=== PATIENT | male | born 1990 | race Caucasian/White ===

== ENCOUNTER 2024-05-28 05:29 | Day surgery (SDC) | payer BC, SELFPAY ==
[2024-05-16 08:52] LABS: Absolute Neutrophil Count 2.6 X10^3/uL (2.0-7.7); Basophil# 0.07 X10^3/uL; Basophil% 1.2 % (0-1); Eosinophil# 0.16 X10^3/uL; Eosinophils% 2.8 % (0-5); Hematocrit 42.2 % (40-54); Hemoglobin 14.7 g/dL (13.0-16.5); Lymphocyte % 39.6 % (19-41); Mean Corp Hgb Conc 34.8 g/dL (32-36); Mean Corpuscular Hgb 30.4 pg (27.0-32.0); Mean Corpuscular Volume 87.4 fL (80-94); Mean Platelet Vol. 9.9 fl (6.2-12.0); Monocyte# 0.66 X10^3/uL; Monocyte% 11.4 % (0-10); NRBC Flagged by Analyzer 0 % (0-5); Neutrophil # 2.56 X10^3/uL (2.7-7.7); Platelet Count 262 K/mm3 (150-450); RBC Distribution Width CV 12.6 % (11.6-14.6); RBC Distribution Width SD 39.7 fl (35.1-43.9); Red Blood Count 4.83 M/mm3 (4.6-6.2); White Blood Count 5.8 K/mm3 (4.4-11.0)
[2024-05-16 09:12] LABS: Magnesium 2.1 mg/dL (1.6-2.6)
[2024-05-16 09:13] LABS: Anion Gap 7 (5-15); BUN 16 mg/dL (7-18); BUN/Creat Ratio 19.4 RATIO (10-20); Calcium,Total 9.1 mg/dL (8.5-10.1); Chloride 106 mmol/L (98-107); Creatinine, Serum 0.83 mg/dL (0.70-1.30); EST Glomerular Filtration Rate 114 mL/min (>60); Est Glom Filt Rate - Afr Amer 138 mL/min (>60); Glucose 121 mg/dL (74-106); Sodium Level 139 mmol/L (136-145)
[2024-05-16 11:50] LABS: HIV - WCH Non-Reactive (Nonreactive); Hepatitis B Surface Antibody Reactive; Hepatitis C Antibody Non-Reactive (Nonreactive)
[2024-05-17 04:07] LABS: Hepatitis A AB, Total Negative (Negative)
[2024-05-28] VITALS (13 sets, daily range): BP systolic 127–136; BP diastolic 73–109; PULSE 83–91; RESP 16–18; TEMP 36.1–36.8; O2SAT 96–100; BMI 38.5
[2024-05-28] MEDS: Magnesium 1 GM over 15 mins IV (06:15)
[2024-05-28] MEDS: 0.9% Normal Saline (1000mL) 1,000 ML 15 ML IV ×2 (06:30→10:32)
--- NOTE | 2024-05-28 06:30 | RAD_ITS ---
PROCEDURE: Disc arthroplasty at the C4-C5 level. DATE OF EXAMINATION: May 28, 2024. INDICATION: Male, 34 years old. Disc arthroplasty at the C4-C5 level. FLUOROSCOPY TIME (if supplied): (12.2 seconds) minutes/seconds. 0.94 mGy. 3 images were submitted. RAD/Cerv Spine 2 or 3 Views IMPRESSION: The localization instrument is seen along the anterior aspect of the C5-C6 disc space level. Electronically Signed: Yung Werner MD at 13:32 EST ,
[2024-05-28] MEDS: Acetaminophen 500 MG Tablet 1000 MG PO (06:31)
--- NOTE | 2024-05-28 06:54 | PRE.ANES_ITS ---
ASA Classification* ASA Classification ASA Classification: 3 Assessment & Plan Anesthesia* Anesthesia Assessment Anesthesia Assessment: Discussed sedation and/or anesthesia options, risks, benefits, and alternatives with patient/parents/legal guardian/POA. Questions invited. The patient/parents/legal guardian/POA seems to understand and agrees to proceed with anesthesia plan. Reviewed the physical assessment, medical history, allergy history and patient home medications list prior to surgery/procedure/anesthetic and documented any changes. Performed airway and anesthesia risk assessments. Anesthesia Type Anesthesia Type: General Anesthesia Focused Assessment* Temperature: 98.3 F Pulse Rate: 83 Blood Pressure: 128/79 Respiratory Rate: 18 Pulse Ox: 96 Airway Assessment Mouth opens: >3 cm Mallampati Score: II Focused Labs Anesthesia Preop lab: CBC WBC 5.8 K/mm3 (4.4-11.0) 05/16/24 07:46 RBC 4.83 M/mm3 (4.6-6.2) 05/16/24 07:46 Hgb 14.7 g/dL (13.0-16.5) 05/16/24 07:46 Hct 42.2 % (40-54) 05/16/24 07:46 Plt Count 262 K/mm3 (150-450) 05/16/24 07:46 CHEMISTRY Potassium 4.0 mmol/L (3.5-5.1) 05/16/24 07:46 Sodium 139 mmol/L (136-145) 05/16/24 07:46 Magnesium 2.1 mg/dL (1.6-2.6) 05/16/24 07:46 BUN 16 mg/dL (7-18) 05/16/24 07:46 Creatinine 0.83 mg/dL (0.70-1.30) 05/16/24 07:46 Glucose 121 mg/dL (74-106) H 05/16/24 07:46 COAG Pre-Assessment Diagnosis/Proposed Procedure Planned Operative Procedure(s): Cervical Disc Arthroplasty C4-5 Anesthesia History 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 When Was Last Pacemaker Check QUESTION #4 FULL TEXT: You/Your Family Experience fever (hyperthermia) with Anesthesia Last Oral Intake Last Oral intake: Last Oral Intake NPO since 20:00 05/28/24 06:24 Meds taken in AM with sips of No 05/28/24 06:24 water? 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 operator Female No 05/14/24 10:52 HX of Motion Sickness No 05/14/24 10:52 HX of N/V After Surgery No 05/14/24 10:52 Non-Smoker Yes 05/14/24 10:52 Duration of Surgery greater Yes 05/14/24 10:52 than 60 minutes Number of Risk Factors 2 05/14/24 10:52 PONV Score Moderate Risk 05/14/24 10:52 Height & Weight Height & Weight: Anesthesia: Height & Weight Height 6 ft 2 in 05/28/24 06:24 Weight: 136 kg 05/28/24 06:24 Body Mass Index (BMI) 38.5 05/28/24 06:24 Respiratory Assessment Respiratory Assessment - gear lapping machine operator: Respiratory Tract Infection Hx - gear lapping machine operator Hx Respiratory Tract Infection No 05/14/24 10:52 STOP Sleep Apnea STOP Sleep Apnea - gear lapping machine operator: STOP Sleep Apnea - gear lapping machine operator Hx Hypertension No 05/14/24 10:52 Hx Sleep Apnea No 05/14/24 10:52 CPAP BIPAP Do you snore loudly (louder No 05/14/24 10:52 than talking or can be heard Do you often feel tired/ No 05/14/24 10:52 fatigued/ sleepy during daytime? Has anyone observed you stop No 05/14/24 10:52 breathing during sleep? STOP Results Negative 05/14/24 10:52 QUESTION #5 FULL TEXT : Do you snore loudly (louder than talking or can be heard through closed doors)? 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 Specify any problems Hx of Preganancy in last 3 N/A 05/14/24 10:52 Months Nurse Filling Out Transfusion NBUCHER 05/14/24 10:52 & Questions: Date: 05/14/24 05/14/24 10:52 Time: 10:53 05/14/24 10:52 Patient unable to answer at this time (ie. confused, unrespo /Reproduction History /Reproductive History - gear lapping machine operator: /Reproductive Hx- gear lapping machine operator Hx Now No 05/14/24 10:52 Gestational Age (in weeks): EDC: Hx Hx Para Hx Section SAB No 05/14/24 10:52 Active Medications Active Medications: Current Medications Generic Name Dose Route Start Last Admin Trade Name Freq PRN Reason Stop Dose Admin Acetaminophen 1,000 mg 05/28/24 07:30 05/28/24 06:31 Acetaminophen 500 Mg Tablet PO 05/28/24 07:31 1,000 mg X1 ONE Administration Dexamethasone Sodium Phosphate 8 mg 05/28/24 07:30 Dexamethasone 10 Mg/Ml Vial IV 05/28/24 07:31 X1 ONE Dexamethasone Sodium Phosphate 4 mg 05/28/24 07:30 Dexamethasone 4 Mg/Ml Vial IV 05/28/24 07:31 X1 ONE Tranexamic Acid 1,000 mg/ 110 mls @ 440 mls/hr 05/28/24 07:30 Sodium Chloride IV 05/28/24 07:44 X1 ONE Tranexamic Acid 1,000 mg/ 110 mls @ 440 mls/hr 05/28/24 08:30 Sodium Chloride IV 05/28/24 08:44 X1 ONE Cefazolin Sodium 3 gm/ N/A 30 mls @ 600 mls/hr 05/28/24 07:30 IV 05/28/24 07:32 PREOP ONE Magnesium Sulfate 1 gm/ 102 mls @ 408 mls/hr 05/28/24 07:30 05/28/24 06:15 Dextrose IV 05/28/24 07:44 408 mls/hr X1 ONE Administration Sodium Chloride 1,000 mls @ 15 mls/hr 05/28/24 05:40 05/28/24 06:30 IV 06/02/24 18:59 15 mls/hr .Q48H SHERIE Administration Protocol Insulin Human Lispro 1 - 6 unit 05/28/24 07:30 Insulin Lispro 100 Unit/Ml Insuln.Pen SC Q4H PRN PRN BG>/= 180, SEE PROTOCOL Protocol PFSH Medical History ADHD Testicular abnormality Former smoker Home Medications ?Medication ?Instructions ?Recorded ?Last Taken ?Type cyclobenzaprine 10 mg tablet 10 mg PO TID 04/10/24 05/25/24 History Allergy/AdvReac Type Severity Reaction Status Date / Time gabapentin Allergy other Verified 05/28/24 06:22 Family History Father Diabetes Colon cancer, Onset Age: 63 Mother Cancer skin. 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 [employer] Smoking Status: Former smoker quit date: 06/18/20 pack-years: 2 alcohol intake: former details: never heavy drinker substance use type: does not use what type of physical activity do you participate in: walking and weight training frequency: daily seatbelt use: always do you feel safe at home: Yes Review of Systems (Anesthesia) ROS Narrative System reviewed and no additional complaints, except as documented.
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
[2024-05-28] MEDS: Cefazolin 3 GM in Syringe 1 EACH IV (07:46)
[2024-05-28] MEDS: TRANEXAMIC ACID 1,000 MG in 0.9% Normal Saline (100mL Bag) 100 ML 440 MG IV ×2 (08:00→09:23)
[2024-05-28] MEDS: dexAMETHasone 10 MG/ML Vial 8 MG IV (08:02)
--- NOTE | 2024-05-28 09:54 | OP.PCM_ITS ---
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, radiculomyelopathy Post-Operative Diagnosis: Same Surgery/Procedure Performed: C4-5 disc replacement sales team recruiter: Yes Slip Sheeter: Dany Braxton Tasks completed by medical library assistant: Closing, Hemostasis: Electrocautery and Retracting Type of Anesthesia: General RN Documented Start/Stop Times: Operation Date: 05/28/24 07:30 Case Time Into Pre-Op 05/28/24 05:39 Out of Pre-Op 05/28/24 07:30 Anesthesia Start 05/28/24 07:39 Into Room 05/28/24 07:39 Procedure Start 05/28/24 08:21 Procedure Start Time: 08:21 Procedure Stop Time: 09:56 Select all DRAINS/GRAFTS/IMPLANTS that apply: Prosthetic device Prosthetic device details: Zimvie Mobi-C cervical displacement prosthesis Estimated Blood Loss: 30 cc Specimen collected: No Description of surgery: Preoperative diagnosis: C4-5 disc degeneration with stenosis, with radiculomyelopathy Postoperative diagnosis: Same Name of procedure: C4-5 anterior cervical disc replacement - Cervical disc replacement C4-5, CPT code 50673 Attending surgeon: Miguel Castrejon M.D. Anesthesia: Gen. endotracheal Estimated blood loss: 30 mL Complications: None Instrumentation used: [employer] Mobi-C cervical disc replacement implants Indications: The patient is a pleasant 34-year-old gentleman who presented with symptoms of neck pain, progressive left worse than right upper extremity radiation and difficulty with dexterity. MRI revealed C4-5 disc degeneration with stenosis, mild central and moderate foraminal left for the right. In order to halt the progression of myelopathy, patient requested surgical intervention. All risks and benefits of the procedure were explained to the patient. The risks include but are not limited to infection, bleeding, injury to nerves and vessels, vertebral artery injury, spinal cord injury, paralysis, vocal cord paralysis, injury to esophagus, need for further procedures, adjacent segment degeneration, heterotopic ossification, implant loosening, implant failure, DVT, pulmonary embolism, cardiopulmonary event, etc. Procedure: The patient was identified in the preoperative suite using unique patient identifiers. Skin was marked consent was taken and all questions were answered. The patient was then brought back to the operative room and a timeout was performed. General endotracheal anesthesia was given. Intraoperative neuro monitoring leads were applied. The patient was carefully positioned supine on a regular OR table. A lateral x-ray with a C-arm was done to identify the level and to define the incision. The anterior neck was then prepped and draped in the usual fashion. A final timeout was then performed. A transverse skin incision was then taken to the left of midline 2 fingerbreadths above the clavicle. Subcutaneous tissue was then divided with Bovie. Platysma was identified and cut transversely with scissors. The fascial interval between the sternocleidomastoid and the larynx was developed. Omohyoid was identified and mobilized medially and inferiorly. Carotid sheath was laterally while the esophagus with the larynx was retracted medially to reach the prevertebral fascia. All prevertebral layers of fascia were bluntly dissected and a [employer] pin was placed into one of the bodies. A lateral C-arm image was used to confirm the correct level. Once this was done longus coli muscle was elevated on both sides at and above and below C4-5 disc. Shadow line retractors were then placed with great care to protect the esophagus. A long handle knife was then used to perform annulotomy at C4-5. Disc fragments were removed with the pituitary. [employer] pins were placed in C4 and C5 for disc distraction. AP view confirmed midline placement of [employer] pins. Curettes were utilized to remove cartilage from the endplates. Discectomy was performed laterally up to the uncovertebral joints. Adequate decompression was performed, PLL was thinned out and partially res ected. Foramina were decompressed without taking down the uncovertebral processes. Once the disc space was prepared, trials of various sizes were utilized. Thorough irrigation was given. Mobi-C anterior cervical disc replacement implant of size 15 x 15 mm with 6 mm height was then placed under fluoroscopic guidance. Adequate positioning was noticed on AP and lateral views. Thorough irrigation was again given. Hemostasis was achieved with FloSeal and bipolar cautery. Closure was done with 3-0 Vicryl for the platysma and subcutaneous tissue layers and 4-0 Monocryl for the skin. Steri-Strips were applied and dressing was done with 4 x 4 gauze and Tegaderm. A cervical collar was then applied. The patient was then woken up from anesthesia extubated and taken to PACU in stable condition. Intraoperative neuro monitoring was performed throughout this procedure. Motor evoked potentials were run periodically. All potentials remained at baseline throughout the procedure. I was present for the entire surgery and performed the surgery myself. Surgical Findings: See operative note Complications Complications: No
--- NOTE | 2024-05-28 10:05 | PCM.POST.ANE ---
Anesthesia: Postop Eval I Current Vital Signs Temperature: 97.9 F Pulse Rate: 91 Blood Pressure: 131/73 Respiratory Rate: 16 Pulse Ox: 97 Oxygen Delivery Method: Room Air Assessment Airway patent: Yes Spontaneous unlabored respirations: Yes Mental status: Awake and Calm nausea: No Vomiting: No Anesthesia Complication: No Fluid Hydration Crystalloid volume administer (ml): 800 Total IV fluid infused: 800 Progress Note Anesthesia document: Postop Eval 1 completed: Yes
--- NOTE | 2024-05-28 11:29 | POSTOPAN2_ITS ---
Anesthesia Postop Eval I Sum Postop Eval Completion status Anesthesia document: Postop Eval 1 completed: Yes Anesthesia Postop Eval I Summary Anesthesia Postop Eval I Summary: Anesthesia Postop Eval I: Assessment Summary Airway patent Yes 05/28/24 10:06 ICE CREAM [email or web address] Spontaneous unlabored Yes 05/28/24 10:06 ICE CREAM [email or web address] respirations Mental status Awake,Calm 05/28/24 10:06 ICE CREAM [email or web address] nausea No 05/28/24 10:06 ICE CREAM [email or web address] Vomiting No 05/28/24 10:06 ICE CREAM [email or web address] Anesthesia Postop Eval I: Fluid Summary Crystalloid volume administer 800 05/28/24 10:06 ICE CREAM [email or web address] (ml) Colloids volume administered ( ml) Blood Product volume administered (ml) Total IV fluid infused 800 05/28/24 10:06 ICE CREAM [email or web address] Anesthesia Postop Eval I: Summary Notes Anesthesia Complication No 05/28/24 10:06 ICE CREAM [email or web address] Anesthesia Complication Comment: Post-operative progress note Anesthesia: Postop Eval II Evaluation Mental status: Awake Pain Level: 0 nausea: No Vomiting: No
--- NOTE | 2024-05-28 11:29 | PCM.POSTANE2 ---
Anesthesia Postop Eval I Sum Postop Eval Completion status Anesthesia document: Postop Eval 1 completed: Yes Anesthesia Postop Eval I Summary Anesthesia Postop Eval I Summary: Anesthesia Postop Eval I: Assessment Summary Airway patent Yes 05/28/24 10:06 [email or web address] Spontaneous unlabored Yes 05/28/24 10:06 [email or web address] respirations Mental status Awake,Calm 05/28/24 10:06 [email or web address] nausea No 05/28/24 10:06 [email or web address] Vomiting No 05/28/24 10:06 [email or web address] Anesthesia Postop Eval I: Fluid Summary Crystalloid volume administer 800 05/28/24 10:06 [email or web address] (ml) Colloids volume administered ( ml) Blood Product volume administered (ml) Total IV fluid infused 800 05/28/24 10:06 [email or web address] Anesthesia Postop Eval I: Summary Notes Anesthesia Complication No 05/28/24 10:06 [email or web address] Anesthesia Complication Comment: Post-operative progress note Anesthesia: Postop Eval II Evaluation Mental status: Awake Pain Level: 0 nausea: No Vomiting: No
[2024-05-28] MEDS: oxyCODONE 5 MG Tablet PO (11:51)
== END 2024-05-28 12:49 | disposition home or self-care (01) ==
LOC: SDC 05:30 → AC 05:31
PROVIDERS: Anesthesiology; Referring Provider Orthopaedic Surgery Orthopaedic Surgery of the Spine; Visit Provider Orthopaedic Surgery Orthopaedic Surgery of the Spine
PROC: (CPT 22856; principal; 2024-05-28 07:00)
DX: M50.121 Cervical disc disorder at C4-C5 level with radiculopathy (principal); M50.021 Cervical disc disorder at C4-C5 level with myelopathy; Z87.891 Personal history of nicotine dependence
CPT/HCPCS: 22856; 00600; 36415; 72040; 76000; 80048; 83735; 85025; 86703; 86706; 86708; 86803; 86850; 86900; 86901; 87081; 93005; A4648; J2405; J3475

== ENCOUNTER 2024-07-10 10:00 | Outpatient (RCR) | payer BC, SELFPAY ==
--- NOTE | 2024-06-27 10:05 | HP.PTEVAL ---
Patient's Visit Information Visit Information Visit Information: REY HOLT is a 34 year old M referred to Physical Therapy by Dr. Miguel Castrejon MD with a diagnosis of C/S disc replacement. Date of Evaluation: 06/27/24 Physical Therapist: Phillip Church, PT, ATC Visit Plan Frequency: 2x /Week Duration: 4-6 Weeks Plan: Postural edu, scap stab ex's, isometric c/s strengthening, UBE, and HEP Subjective Subjective: DOS: 05/28/24. Pt notes he had a c/s disc replacement at that time. Pt reports he is doing much better at this time. Pt notes he had a lot of pain prior to surgery and was not able to perform his job. Pt notes his L UE radiculopathy was 100% effected prior to the surgery. Pt reports all of that is nearly gone now since the surgery. Pt denies sleep difficulty at this time secondary to pain. 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 Pt reports he lost full ability to lift anything with his UE's prior to surgery secondary to weakness. Pt reports he feels completely better now since surgery in the aspect that he has full mobility in his neck, his L UE has sensation now, and he is able to drive now without limitation. Pt reports the only thing that hurts now is when he accidentally performs a quick movement with his neck. 0/10 pain while sitting here at rest, 3/[address] and looking to his R Pain Neck pain: Pain Intensity (Out of 10): 0 Pain Intensity Range: 3 Objective Objective: Neuro: B UE sensation is WNL to light touch ROM: Pt is minimally limited in all planes MMT: B UE's are grossly 4+/5-5/5 Posture: Pt sits and stands with increased t/s kyphosis and decrease in L/S lordosis Balance/Special Test Scores Oswestry Neck Score: 13 Goals Goal 1:: Decrease Neck pain x 50% to aid with return to work Goal Time Frame: 4-6 Weeks Goal 2:: Increase B UE strength to 5/5 throughout to aid with IADL's Goal Time Frame: 4-6 Weeks Goal 3:: Pt will be able to sleep throughout the night without waking up secondary to pain Goal Time Frame: 4-6 Weeks Goal 4:: I with HEP of postural edu and scap stab ex's Goal Time Frame: 4-6 Weeks Rehabilitation Potential Physical Therapy Diagnosis: Pt has neck pain and limited cervical spine ROM secondary to c/s disc replacement Rehabilitation Potential: Excellent Anticipated Interventions Patient/Client Instruction: Educate patient on: Condition and Plan of Care For the Purpose of:: To improve self management Therapeutic Exercise to Include: Strength training, Endurance training, Body mechanics, Postural training and Scapular Strength/Stabilization For the Purpose of:: To decrease pain, To increase ROM and To improve muscle performance and motor function Text: Thank you for the opportunity to evaluate your patient. For Medicare and Medicare HMO plans, please review the plan of care and approve it. It will need to be FAXED BACK to us at [phone] for Medicare purposes. For Medicare only, by signing this I certify the plan of care. Please let me know if there are questions or concerns regarding this plan of care. Physician Signature: Date:
--- NOTE | 2024-07-30 07:28 | HP.PT.NRP ---
Patient Information Patient Information: REY HOLT was seen in my office for initial evaluation on 06/27/24. The following Plan of Care was established for this patient: POC Established Initial Frequency: 2x /Week Initial Duration: 4-6 Weeks Anticipated Interventions Patient/Client Instruction: Educate patient on: Condition and Plan of Care For the Purpose of:: To improve self management Therapeutic Exercise to Include: Strength training, Endurance training, Body mechanics, Postural training and Scapular Strength/Stabilization For the Purpose of:: To decrease pain, To increase ROM and To improve muscle performance and motor function Last Seen Last Seen: This patient was last seen in our office . Pertinent comments regarding their Physical therapy will appear below: Pt has no shown for his last 3 visits. Pt will be taken off the schedule at this time. Discontinue. At this point I will be discontinuing this patient from physical therapy. I would be happy to see this patient again in the future if found appropriate by the physician. Thank you! Phillip Church, PT, ATC Balance/Gait/Functional tests Balance/Special Test Scores Oswestry Neck Score: 13
== END 2024-07-10 19:00 | disposition home or self-care (01) ==
LOC: PT 10:00
PROVIDERS: Referring Provider Orthopaedic Surgery Orthopaedic Surgery of the Spine; Visit Provider Orthopaedic Surgery Orthopaedic Surgery of the Spine
DX: Z98.890 Other specified postprocedural states (principal)
CPT/HCPCS: 97110; 97161